=== PATIENT | female | born 2000 | race Two or more races ===

== ENCOUNTER 2022-08-10 11:10 | Emergency (ER) | payer OTHER ==
[~2022-08-10] VITALS: Ht 160 cm; Wt 74.8 kg
[2022-08-10] MEDS ORDERED: SPRINTEC 28 DA1 EACH PO (11:33)
== END 2022-08-10 14:35 ==
LOC: ER 11:10
DX: M79.671 Pain in right foot (principal)

== ENCOUNTER 2022-08-17 17:27 | Emergency (ER) | payer OTHER ==
[~2022-08-17] VITALS: Ht 160 cm; Wt 75.7 kg
[~2022-08-17 17:27] MED LIST: SPRINTEC 28 DA1 EACH PO
[2022-08-17] MEDS ORDERED: SPRINTEC 28 DA1 EACH PO (17:46)
[2022-08-17] MEDS ORDERED: AMOX-CLAV 875-1 EACH PO (18:06)
== END 2022-08-17 18:27 | disposition home or self-care (01) ==
LOC: ER 17:27
DX: J03.90 Acute tonsillitis, unspecified (principal); J45.909 Unspecified asthma, uncomplicated

== ENCOUNTER 2023-05-06 22:35 | Emergency (ER) | payer OTHER ==
[~2023-05-06] VITALS: Ht 160 cm; Wt 71.7 kg
[~2023-05-06 22:35] MED LIST changes: +AMOX-CLAV 875-1 EACH PO
[2023-05-07] MEDS ORDERED: BETANATE15 GM TOP (02:12)
[2023-05-07] MEDS ORDERED: MOMETASONE FURO15 G2 TOP (02:12)
== END 2023-05-07 02:22 ==
LOC: ER 22:35
DX: R21 Rash and other nonspecific skin eruption (principal)